=== PATIENT | female | born 1990 | race Hispanic/Latino ===

== ENCOUNTER 2024-05-17 23:19 | Day surgery (SDC) | payer OTHER ==
[2024-05-17 23:42] VITALS: BMI 37.1
[2024-05-18] MEDS ORDERED: hydrALAZINE 20 MG/ML VIAL SLOW IVP PRN (00:15)
[2024-05-18] MEDS: Cyclobenzaprine 10 MG TAB PO SCH (01:25)
[2024-05-18] MEDS: Lactated Ringer's 1,000 ML IV SCH (01:49)
== END 2024-05-18 02:40 | disposition home or self-care (01) ==
LOC: CSHLD/OP 23:19
PROVIDERS: ATTEND Obstetrics & Gynecology
DX: O99.891 Other specified diseases and conditions complicating pregnancy (principal); M54.9 Dorsalgia, unspecified; R81 Glycosuria; O09.43 Supervision of pregnancy with grand multiparity, third trimester; O09.523 Supervision of elderly multigravida, third trimester; Z79.899 Other long term (current) drug therapy; Z3A.28 28 weeks gestation of pregnancy
CPT/HCPCS: 76770; 96360; 99282